=== PATIENT | female | born 1995 | race Two or more races ===

== ENCOUNTER 2025-08-24 19:12 | Observation (INO) | payer BC, SELFPAY ==
[2025-08-24] VITALS (16 sets, daily range): BP systolic 137; BP diastolic 86; PULSE 94–113; RESP 18–96; TEMP 37.1; O2SAT 96–99; BMI 39.9
[2025-08-24 19:57] LABS: Collection Type, Urine Clean Catch
[2025-08-24 20:02] LABS: Bacteria,Urine Rare; Bilirubin,Urine Negative (Negative); Blood,Urine Negative (Negative); Clarity,Urine Clear (Clear/Hazy); Color,Urine Lt-Yellow (Lt Yel-Yel); Glucose, Urine Negative (Negative); Ketones,Urine Negative (Negative); Leukocyte Esterase,Urine Positive (Negative); Nitrite,Urine Negative (Negative); PH,Urine 7.0 (5.0-7.0); Protein,Urine Negative (Neg - Trace); RBC,Urine 2 /hpf (0-3); Specific Gravity,Urine 1.010 (1.001-1.035); Squamous Epithelial Cell,Urine 2 /hpf (0-5); Urobilinogen,Urine Negative mg/dL (0.0-1.0); WBC,Urine 1 /hpf (0-5)
[2025-08-24 20:07] LABS: ROM Swab Mixed By: MARTB3; Rupture of Fetal Membranes Negative (Negative); Swb Mxed in Solvent 1 min? Yes
[2025-08-24] MEDS: guaiFENesin/DM 10 ML UDC PO (20:11)
[2025-08-24 20:36] LABS: Influenza A Ag Negative; Influenza B Ag Negative
--- NOTE | 2025-08-24 20:36 | PD.LDANTPROG ---
Subjective Subjective Interval history: The patient is 30-year-old -0-8-1 at 34 weeks. She sees a physician in [place] and is supposed to deliver there. She has a history of possible antiphospholipid antibody syndrome on baby aspirin. She presented to triage with some brownish discharge and flulike symptoms. She was not sure if she broke her water or if she was incontinent of urine secondary to her cough. In triage she had a reactive tracing she was jes irregularly. Her urine was negative and her AmniSure was negative. Exam Vital Signs Temp Pulse Resp BP Pulse Ox 98.7 F 105 H 18 137/86 H 97 08/24/25 19:25 08/24/25 19:34 08/24/25 19:25 08/24/25 19:34 08/24/25 20:34 Narrative Exam Patient is coughing otherwise is alert and oriented x 3. She denies fevers at home Routine Abdominal Exam Abdominal: Present soft Comments: Cervix closed /50 /high Additional findings Additional findings: AmniSure negative Influenza A and B- Urinalysis negative Urinary Catheter Management Cath placed during this visit: no Assessment & Plan Problems (1) Supervision of high risk in third trimester: Problem details: Patient in OB triage with probable viral respiratory illness. Influenza A and B are negative. Home with supportive measures. Status: Acute (2) with history of multiple loss, antepartum: Problem details: The patient's physician delivers in [place]. NSTs /BPP's through her primary obstetric provider. Reassuring category 1 tracing in OB triage. Status: Acute Time Spent With Patient Time with patient: less than 15 minutes Objective Labs Labs: Laboratory Results - last 24 hr 08/24/25 19:20 Ur Collection Type Clean Catch Urine Color Lt-Yellow Urine Clarity Clear Urine pH 7.0 Ur Specific [place] 1.010 Urine Protein Negative Urine Glucose (UA) Negative Urine Ketones Negative Urine Blood Negative Urine Nitrite Negative Urine Bilirubin Negative Urine Urobilinogen (Auto) Negative Ur Leukocyte Esterase Positive Urine RBC 2 Urine WBC 1 Ur Squamous Epith Cells 2 Urine Bacteria Rare Membrane Rupture Negative
== END 2025-08-25 00:10 | disposition home or self-care (01) ==
PROVIDERS: Admitting Provider Obstetrics & Gynecology; Visit Provider Obstetrics & Gynecology
DX: O09.293 Supervision of pregnancy with other poor reproductive or obstetric history, third trimester (principal); O26.23 Pregnancy care for patient with recurrent pregnancy loss, third trimester; O99.891 Other specified diseases and conditions complicating pregnancy; N89.8 Other specified noninflammatory disorders of vagina; O26.893 Other specified pregnancy related conditions, third trimester; R05.9 Cough, unspecified; Z3A.34 34 weeks gestation of pregnancy
CPT/HCPCS: 59025; 59899; 81001; 84112; 87502; A9270